=== PATIENT | female | born 1990 | race Hispanic/Latino ===

== ENCOUNTER 2022-03-15 12:50 | Emergency (ER) | payer OTHER ==
[~2022-03-15] VITALS: Ht 154.9 cm; Wt 63.0 kg
[2022-03-15] MEDS ORDERED: ACETAMINOPHEN500 MG PO (13:34)
[2022-03-15] MEDS ORDERED: CEFDINIR300 MG PO (13:34)
[2022-03-15] MEDS ORDERED: ONDANSETRON ODT4 MG PO (13:34)
== END 2022-03-15 13:43 | disposition home or self-care (01) ==
LOC: FSED 12:56
DX: O26.892 Other specified pregnancy related conditions, second trimester (principal); J02.0 Streptococcal pharyngitis; R05.9 Cough, unspecified
CPT/HCPCS: 83518; 99282